=== PATIENT | female | born 2000 | race Caucasian/White ===

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

== ENCOUNTER → 2019-03-18 12:41 | Outpatient (CLI) | payer BC ==
[2018-10-03 10:12] VITALS: BMI 24.7
[~2019-03-18 12:41] MED LIST: FOLIC ACID1 MG PO; HYDROCODON-ACE1 EA10 PO; IBUPROFEN600 MG PO; MULTI-DAY VITAM1 TAB PO; PRENAVITE1 TAB PO
[2019-03-18 13:29] LABS: HEMATOCRIT 29.7 % (36.0-48.0); HEMOGLOBIN 9.3 g/dL (12-16); MCH 24.5 pg (26.0-34.0); MCHC 31.3 g/dL (31.0-37.0); MCV 78.4 fL (80.0-100.0); MEAN PLATELET VOLUME 9.8 fL (7.4-10.4); RBC 3.79 10x6/uL (4.00-5.40); RDW 15.3 % (11.5-14.5); WBC 8.1 10x3/uL (4.8-10.8)
[2019-03-18 14:16] LABS: CALC OSMOLALITY 273 mosm/kg (275-300); CALCIUM 8.3 mg/dL (8.5-10.1); CARBON DIOXIDE 23.3 mmol/L (21.0-32.0); CHLORIDE - SERUM 105 mmol/L (98-107); CREATININE - SERUM 0.8 mg/dL (0.6-1.3); POTASSIUM - SERUM 4.2 mmol/L (3.5-5.1); SODIUM 139 mmol/L (136-145); UREA NITROGEN 8 mg/dL (7-18); URIC ACID 3.9 mg/dL (2.6-7.2); eGFR NON AFRICAN AMERICAN > 90 mL/min (90-120)
[2019-03-18 14:33] LABS: GLUCOSE 64 mg/dL (74-106)
[2019-03-18 14:48] LABS: ALT (SGPT) 18 U/L (10-68)
[2019-04-26 15:07] VITALS: BMI 35.8
== END | disposition home or self-care (01) ==
LOC: D.LDO 12:41
PROVIDERS: ATTEND Obstetrics & Gynecology
DX: O26.893 Other specified pregnancy related conditions, third trimester (principal); Z3A.28 28 weeks gestation of pregnancy; R03.0 Elevated blood-pressure reading, without diagnosis of hypertension

== ENCOUNTER → 2019-04-03 09:14 | Outpatient (CLI) | payer BC ==
[2018-10-03 10:12] VITALS: BMI 24.7
[2019-04-03 10:29] LABS: BASOPHILS 0.1 % (0-2); EOSINOPHILS 1.9 % (0-7); HEMATOCRIT 26.6 % (36.0-48.0); HEMOGLOBIN 8.4 g/dL (12-16); IMMATURE GRANULOCYTES 0.4 % (0-5); LYMPHOCYTES 23.7 % (15-50); MCH 23.9 pg (26.0-34.0); MCHC 31.6 g/dL (31.0-37.0); MCV 75.6 fL (80.0-100.0); MEAN PLATELET VOLUME 9.7 fL (7.4-10.4); MONOCYTES 5.5 % (2-11); NEUTROPHILS 68.4 % (40-80); PLATELET COUNT 221 10x3/uL (130-400); RBC 3.52 10x6/uL (4.00-5.40); RDW 15.6 % (11.5-14.5); WBC 7.5 10x3/uL (4.8-10.8)
[2019-04-03 11:01] LABS: ALBUMIN 2.3 g/dL (3.4-5.0); ALKALINE PHOSPHATASE 154 U/L (46-116); ALT (SGPT) 8 U/L (10-68); BILIRUBIN - DIRECT 0.03 mg/dL (0.00-0.30); BILIRUBIN - INDIRECT 0.19 mg/dL (0.00-1.00); BILIRUBIN - TOTAL 0.22 mg/dL (0.2-1.3); CALC OSMOLALITY 273 mosm/kg (275-300); CHLORIDE - SERUM 106 mmol/L (98-107); CREATININE - SERUM 0.7 mg/dL (0.6-1.3); GLUCOSE 83 mg/dL (74-106); POTASSIUM - SERUM 4.1 mmol/L (3.5-5.1); PROTEIN - SERUM 5.9 g/dL (6.4-8.2); SODIUM 138 mmol/L (136-145); UREA NITROGEN 9 mg/dL (7-18); URIC ACID 4.5 mg/dL (2.6-7.2); eGFR NON AFRICAN AMERICAN > 90 mL/min (90-120)
[2019-04-26 15:07] VITALS: BMI 35.8
== END | disposition home or self-care (01) ==
LOC: D.LDO 09:14
PROVIDERS: ATTEND Obstetrics & Gynecology
DX: O26.893 Other specified pregnancy related conditions, third trimester (principal); Z3A.30 30 weeks gestation of pregnancy; R03.0 Elevated blood-pressure reading, without diagnosis of hypertension

== ENCOUNTER 2019-04-08 09:33 | Outpatient (CLI) | payer BC ==
[2018-10-03 10:12] VITALS: BMI 24.7
[~2019-04-08 09:33] MED LIST changes: -HYDROCODON-ACE1 EA10 PO; -IBUPROFEN600 MG PO
[2019-04-08 10:17] LABS: BASOPHILS 0.1 % (0-2); EOSINOPHILS 2.3 % (0-7); HEMATOCRIT 23.7 % (36.0-48.0); IMMATURE GRANULOCYTES 0.4 % (0-5); LYMPHOCYTES 23.1 % (15-50); MCH 23.4 pg (26.0-34.0); MCHC 31.2 g/dL (31.0-37.0); MEAN PLATELET VOLUME 9.9 fL (7.4-10.4); MONOCYTES 7.6 % (2-11); NEUTROPHILS 66.5 % (40-80); PLATELET COUNT 231 10x3/uL (130-400); RBC 3.16 10x6/uL (4.00-5.40); RDW 15.6 % (11.5-14.5); WBC 7.9 10x3/uL (4.8-10.8)
[2019-04-08 10:36] LABS: ALBUMIN 2.2 g/dL (3.4-5.0); ALKALINE PHOSPHATASE 152 U/L (46-116); ALT (SGPT) 8 U/L (10-68); BILIRUBIN - DIRECT 0.06 mg/dL (0.00-0.30); BILIRUBIN - TOTAL 0.26 mg/dL (0.2-1.3); CALC OSMOLALITY 275 mosm/kg (275-300); CALCIUM 7.7 mg/dL (8.5-10.1); CARBON DIOXIDE 23.6 mmol/L (21.0-32.0); CHLORIDE - SERUM 107 mmol/L (98-107); CREATININE - SERUM 0.8 mg/dL (0.6-1.3); GLUCOSE 76 mg/dL (74-106); POTASSIUM - SERUM 3.8 mmol/L (3.5-5.1); PROTEIN - SERUM 5.6 g/dL (6.4-8.2); SODIUM 140 mmol/L (136-145); UREA NITROGEN 6 mg/dL (7-18); URIC ACID 5.2 mg/dL (2.6-7.2); eGFR NON AFRICAN AMERICAN > 90 mL/min (90-120)
[2019-04-08 10:37] LABS: HEMOGLOBIN 7.4 g/dL (12-16)
[2019-04-11 08:56] LABS: PROTEIN - URINE 8.7 mg/dL (0.0-11.9)
[2019-04-26 15:07] VITALS: BMI 35.8
== END 2019-04-08 18:00 ==
LOC: D.LABREF 09:33 → D.LDO 09:33
PROVIDERS: ATTEND Obstetrics & Gynecology
DX: O26.893 Other specified pregnancy related conditions, third trimester (principal); Z3A.31 31 weeks gestation of pregnancy; R03.0 Elevated blood-pressure reading, without diagnosis of hypertension

== ENCOUNTER → 2019-04-11 08:51 | Outpatient (CLI) | payer BC ==
[2018-10-03 10:12] VITALS: BMI 24.7
== END | disposition home or self-care (01) ==
LOC: D.LDO 08:51
PROVIDERS: ATTEND Obstetrics & Gynecology
DX: O26.893 Other specified pregnancy related conditions, third trimester (principal)

== ENCOUNTER → 2019-04-15 09:26 | Outpatient (CLI) | payer BC ==
[2018-10-03 10:12] VITALS: BMI 24.7
[~2019-04-15 09:26] MED LIST changes: +HYDROCODON-ACE1 EA10 PO; +IBUPROFEN600 MG PO
[2019-04-26 15:07] VITALS: BMI 35.8
== END | disposition home or self-care (01) ==
LOC: D.LDO 09:26
PROVIDERS: ATTEND Obstetrics & Gynecology
DX: O26.893 Other specified pregnancy related conditions, third trimester (principal); Z3A.32 32 weeks gestation of pregnancy

== ENCOUNTER → 2019-04-18 11:13 | Outpatient (CLI) | payer BC ==
[2018-10-03 10:12] VITALS: BMI 24.7
[2019-04-18 12:41] LABS: BASOPHILS 0.3 % (0-2); EOSINOPHILS 1.8 % (0-7); HEMATOCRIT 31.6 % (36.0-48.0); HEMOGLOBIN 10.2 g/dL (12-16); IMMATURE GRANULOCYTES 0.3 % (0-5); LYMPHOCYTES 21.2 % (15-50); MCH 25.4 pg (26.0-34.0); MCHC 32.3 g/dL (31.0-37.0); MCV 78.6 fL (80.0-100.0); MEAN PLATELET VOLUME 10.6 fL (7.4-10.4); MONOCYTES 5.6 % (2-11); NEUTROPHILS 70.8 % (40-80); RBC 4.02 10x6/uL (4.00-5.40); RDW 19.5 % (11.5-14.5); WBC 7.7 10x3/uL (4.8-10.8)
[2019-04-18 12:43] LABS: PLATELET COUNT 178 10x3/uL (130-400)
[2019-04-18 13:12] LABS: ALBUMIN 2.2 g/dL (3.4-5.0); ALKALINE PHOSPHATASE 166 U/L (46-116); ALT (SGPT) 9 U/L (10-68); BILIRUBIN - DIRECT 0.07 mg/dL (0.00-0.30); BILIRUBIN - INDIRECT 0.13 mg/dL (0.00-1.00); CALC OSMOLALITY 276 mosm/kg (275-300); CARBON DIOXIDE 21.4 mmol/L (21.0-32.0); CHLORIDE - SERUM 107 mmol/L (98-107); CREATININE - SERUM 0.8 mg/dL (0.6-1.3); GLUCOSE 89 mg/dL (74-106); POTASSIUM - SERUM 3.7 mmol/L (3.5-5.1); PROTEIN - SERUM 5.7 g/dL (6.4-8.2); SODIUM 140 mmol/L (136-145); UREA NITROGEN 10 mg/dL (7-18); URIC ACID 5.6 mg/dL (2.6-7.2); eGFR NON AFRICAN AMERICAN > 90 mL/min (90-120)
[2019-04-23 15:21] LABS: PROTEIN - URINE 51.2 mg/dL (0.0-11.9)
[2019-04-26 15:07] VITALS: BMI 35.8
== END | disposition home or self-care (01) ==
LOC: D.LDO 10:59
PROVIDERS: ATTEND Obstetrics & Gynecology
DX: O10.919 Unspecified pre-existing hypertension complicating pregnancy, unspecified trimester (principal)

== ENCOUNTER 2019-04-23 17:58 | Outpatient (CLI) | payer BC ==
[2018-10-03 10:12] VITALS: BMI 24.7
[~2019-04-23 17:58] MED LIST changes: -HYDROCODON-ACE1 EA10 PO; -IBUPROFEN600 MG PO
[2019-04-23 18:48] LABS: BASOPHILS 0.2 % (0-2); EOSINOPHILS 2.2 % (0-7); HEMATOCRIT 30.7 % (36.0-48.0); HEMOGLOBIN 9.9 g/dL (12-16); IMMATURE GRANULOCYTES 0.2 % (0-5); LYMPHOCYTES 33.1 % (15-50); MCH 25.4 pg (26.0-34.0); MCHC 32.2 g/dL (31.0-37.0); MCV 78.9 fL (80.0-100.0); MEAN PLATELET VOLUME 10.7 fL (7.4-10.4); MONOCYTES 5.8 % (2-11); NEUTROPHILS 58.5 % (40-80); PLATELET COUNT 187 10x3/uL (130-400); RBC 3.89 10x6/uL (4.00-5.40); RDW 20.2 % (11.5-14.5); WBC 6.4 10x3/uL (4.8-10.8)
[2019-04-23 19:09] LABS: ALBUMIN 2.2 g/dL (3.4-5.0); ALKALINE PHOSPHATASE 169 U/L (46-116); ALT (SGPT) 8 U/L (10-68); BILIRUBIN - TOTAL 0.22 mg/dL (0.2-1.3); CALC OSMOLALITY 273 mosm/kg (275-300); CALCIUM 7.6 mg/dL (8.5-10.1); CARBON DIOXIDE 20.4 mmol/L (21.0-32.0); CHLORIDE - SERUM 106 mmol/L (98-107); CREATININE - SERUM 0.8 mg/dL (0.6-1.3); GLUCOSE 76 mg/dL (74-106); POTASSIUM - SERUM 3.7 mmol/L (3.5-5.1); PROTEIN - SERUM 5.4 g/dL (6.4-8.2); SODIUM 138 mmol/L (136-145); UREA NITROGEN 9 mg/dL (7-18); URIC ACID 6.3 mg/dL (2.6-7.2); eGFR NON AFRICAN AMERICAN > 90 mL/min (90-120)
[2019-04-23 19:11] LABS: BILIRUBIN - DIRECT 0.02 mg/dL (0.00-0.30)
[2019-04-24 17:05] LABS: APPEARANCE CLEAR (CLEAR); BILIRUBIN NEGATIVE (NEGATIVE); COLOR YELLOW (YELLOW); GLUCOSE NEGATIVE (NEGATIVE); KETONE NEGATIVE (NEGATIVE); NITRITE NEGATIVE (NEGATIVE); PROTEIN TRACE mg/dL (NEGATIVE); UROBILINOGEN NORMAL (NORMAL)
[2019-04-26 15:07] VITALS: BMI 35.8
== END 2019-04-24 18:15 | disposition home or self-care (01) ==
LOC: D.LDO 17:58 → D.LD 22:17 → D.LDO 04-24 18:15
PROVIDERS: ATTEND Obstetrics & Gynecology
DX: O26.90 Pregnancy related conditions, unspecified, unspecified trimester (principal)

== ENCOUNTER 2019-04-26 12:25 | Inpatient (IN) | payer BC ==
[~2019-04-26] VITALS: Ht 175.3 cm; Wt 109.8 kg
--- NOTE | 2019-04-26 09:00 | NUR ---
PHONE CALL MADE TO FIONA IN PHARMACY TO REQUEST MAG SULFATE 6 GRAM LOADING DOSE.
[2019-04-26 13:37] LABS: BASOPHILS 0.1 % (0-2); EOSINOPHILS 0.4 % (0-7); HEMATOCRIT 30.6 % (36.0-48.0); HEMOGLOBIN 9.5 g/dL (12-16); IMMATURE GRANULOCYTES 0.6 % (0-5); LYMPHOCYTES 22.4 % (15-50); MCH 25.6 pg (26.0-34.0); MCV 82.5 fL (80.0-100.0); MEAN PLATELET VOLUME 10.6 fL (7.4-10.4); MONOCYTES 9.9 % (2-11); NEUTROPHILS 66.6 % (40-80); PLATELET COUNT 196 10x3/uL (130-400); RBC 3.71 10x6/uL (4.00-5.40); RDW 20.8 % (11.5-14.5); WBC 8.6 10x3/uL (4.8-10.8)
[2019-04-26 13:43] LABS: ALBUMIN 2.2 g/dL (3.4-5.0); ALKALINE PHOSPHATASE 154 U/L (46-116); ALT (SGPT) 6 U/L (10-68); BILIRUBIN - DIRECT 0.06 mg/dL (0.00-0.30); BILIRUBIN - INDIRECT 0.13 mg/dL (0.00-1.00); BILIRUBIN - TOTAL 0.19 mg/dL (0.2-1.3); CALC OSMOLALITY 279 mosm/kg (275-300); CALCIUM 7.7 mg/dL (8.5-10.1); CARBON DIOXIDE 20.7 mmol/L (21.0-32.0); CHLORIDE - SERUM 110 mmol/L (98-107); CREATININE - SERUM 0.9 mg/dL (0.6-1.3); GLUCOSE 93 mg/dL (74-106); POTASSIUM - SERUM 3.7 mmol/L (3.5-5.1); SODIUM 141 mmol/L (136-145); UREA NITROGEN 9 mg/dL (7-18); URIC ACID 5.4 mg/dL (2.6-7.2); eGFR NON AFRICAN AMERICAN 85 mL/min (90-120)
[2019-04-26 15:07] VITALS: BP 169/91; Ht 175.3 cm; Wt 109.8 kg
--- NOTE | 2019-04-26 16:58 | NUR ---
BABY BOY AT [id number]
[2019-04-26 18:11] VITALS: BP 118/64
--- NOTE | 2019-04-26 18:15 | NUR ---
RECEIVED PT POST SECTION FROM RR. PT HAS LARGE WHITE DRESSING OVER LOW TRANSVERSE INCISION, FUNDUS FIRM, U/1, SMALL RUBRA LOCHIA, 2 DIME SIZED CLOTS REMOVED. PERICARE DONE, AND NEW PERIPAD APPLIED. ABDOMEN PALPATES SOFT. ICE PACK PLACED OVER GOWN TO INCISION. SCDS ON BY RR RN. RECEIVED PT WITH PITOCIN INFUSING AT 125 ML/HR. SEE EM[facility] FOR ALL MEDS ADM BY THIS RN. DR. MCCARTY TO DESK, VERBAL REPORT THAT HE WANTS PT TO HAVE A 6 GRAM LOADING DOSE OF MAGNESIUM SULFATE, AND THEN RUN AT 2 GRAMS AN HOUR. PT SERVED ICE WATER. FAMILY TO BEDSIDE. SRUP X2, CALL LIGHT AND PHONE WITHIN REACH.
[2019-04-26 18:30] VITALS: BP 124/76
--- NOTE | 2019-04-26 18:30 | NUR ---
FUNDUS FIRM, U/1, SMALL RUBRA LOCHIA, NO CLOTS NOTED. ABDOMEN CONTINUES TO PALPATE SOFT. PHONE CALL MADE TO PHARMACY, MAGNESIUM SULFATE 6 GRAM LOADING DOSE IS NOT FOUND IN [facility].
[2019-04-26 18:45] VITALS: BP 131/81
--- NOTE | 2019-04-26 19:00 | NUR ---
REPORT GIVEN TO Sylvia YOUNG RN.
--- NOTE | 2019-04-26 19:00 | NUR ---
DR. MCCARTY CALLS TO UNIT, REPORT GIVEN TO MD OF POST OP BP'S BY Saad KEYS RN.
--- NOTE | 2019-04-26 19:30 | NUR ---
REC'D PT AA&O X 4. PAIN ASSESSED. PT RATES PAIBN 2/10. PT HAS RECEIVED TORADOL 30MG SIVP AND DILUADID COACH OPERATOR IS IN PLACED AND PT HAS PUSHED THE BOLUS BUTTON. BEDSIDE REPORT REC'D FROM Meme VOGEL RN. FUNDUS CHECK DONE PER Meme VOGEL RN FUNDUS FIRM,U/U,NO CLOTS EXPRESSED W/MASSAGE, BUT MULTIPLE GOLF BALL SIZED CLOTS ALREADY NOTED TO HAVE BEEN EXPLELLED. PERICARE DONE. COMPLETE BED LINEN CHANGED DONE. FRESH PERIPAD PLACED. SCANT LOCHIA NOTED AT THIS TIME. SHIFT ASSESSMENT COMPLETED. SEE FLOWSHEET. PT HAS TO IV SITES. 1 TO RIGHT HAND AND CURRENTLY 1 SALINE LOCK TO LEFT WRIST. LOADING DOSE OF MAGNESIUM SULFATE COMPLETE AT THIS TIME. MAINTANCE DOSE UP AT THIS TIME TO INFUSE AT 2GM/HR. 0.45% NS UP TO INFUSE AT 10ML/HR. PT CURRENTLY HAS NS W/20UNITS PITOCIN INFUSING AT 50ML/HR.CLEAR LIQUID TRAY SERVED AT THIS TIME. MULTIPLE FAMILY MEMBERS AT BEDSIDE.SEE FLOW SHEET FOR COMPLETE CHARTING. PT DENIES NEEDS AT PRESENT. BED LOW, SIDE RAILS UP X 2. CALL LIGHT AT PT'S SIDE.
--- NOTE | 2019-04-26 20:18 | NUR ---
THIS RN TO BEDSIDE. PT AA&O X 4. FUNDUS FIRM, U/U, SCANT LOCHIA NOTED. NO BLOOD CLOTS EXPRESSED. PT COMPLETING CLEAR LIQUID DIET TRAY.
--- NOTE | 2019-04-26 21:00 | NUR ---
THIS RN TO BEDSIDE. PT SITTING UP IN BED. WORKING ON NURSERY PAPERWORK. PAIN ASSESSED. PT REPORTS PAIN 2/10. NO FURTHER PAIN INTEVENTIONS REQUESTED AT THIS TIME. FUNDUS FIRM,U/U, SCANT TO LIGHT LOCHIA NOTED. NO BLOOD CLOTS EXPRESSED W/MASSAGE. APPROX 125ML URINE NOTED AND DUMPED. PT DENIES NEEDS AT THIS TIME. CURRENT PERIPAD CHANGED.
[2019-04-26 21:26] LABS: BASOPHILS 0.1 % (0-2); EOSINOPHILS 0.2 % (0-7); HEMOGLOBIN 9.5 g/dL (12-16); IMMATURE GRANULOCYTES 0.5 % (0-5); LYMPHOCYTES 15.6 % (15-50); MCHC 31.7 g/dL (31.0-37.0); MCV 82.2 fL (80.0-100.0); MEAN PLATELET VOLUME 10.3 fL (7.4-10.4); MONOCYTES 8.5 % (2-11); NEUTROPHILS 75.1 % (40-80); PLATELET COUNT 184 10x3/uL (130-400); RBC 3.65 10x6/uL (4.00-5.40); RDW 20.2 % (11.5-14.5)
[2019-04-26 21:37] LABS: WBC 12.1 10x3/uL (4.8-10.8)
--- NOTE | 2019-04-26 22:15 | NUR ---
THIS RN TO BEDSIDE. PT INSTRUCTED ON HOW TO USE THE INCENTIVE SPIROMETER AND T/C/D. PT HAS REPOSITIONED SELF UP IN BED FREQUENTLY. PT PERFORMS I.S. X 3 W/GOOD EFFORT. ABLE TO PULL 1800. COUGHS 3 TIMES W/GOOD EFFORT. APPROX 225ML URINE EMPTIED FROM UROMETER AND DUMPED TO OROZCO BAG. CURRENTLY RATES PAIN 2/10. REPORTS HAS BEEN USING OBSTETRICS TEACHER BUTTON TO MAINTAIN PAIN CONTROL. FUNDUS FIRM,U/U, SMALL LOCHIA NOTED. CLEAN PAD PLACED.
--- NOTE | 2019-04-26 23:23 | NUR ---
[facility] TEAM TO PT'S ROOM AT THIS TIME FOR PT TO SEE BEFORE TRANSFERED TO [facility].
[2019-04-26 23:30] VITALS: BP 146/93
--- NOTE | 2019-04-26 23:35 | NUR ---
THIS RN TO BEDSIDE FOR T/C/D, PT PERFORMS I/S X 3 TIMES W/GOOD EFFORT. COUGHS W/GOOD EFFORT. REPOSITIONS SELF FROM SIDE TO SIDE TO RETURN TO LOW GENAO'S. FUNDUS FIRM,U/U, SCANT TO SMALL LOCHIA NOTED. NO CLOTS EXPRESSED W/MASSAGE. CLEAN PERIPAD PLACED. SCD WRAPS REMAIN IN PLACE BILATERALLY. PUMP REMAINS ON AND FUNCTIONING. EDEMA TO LE'S NOTED W/MILD PITTING NOTED. CLONUS ACCESSED AND PRESENT TO RT LE. REFLEXES 2+. APPROX 225ML URINE NOTED IN UROMETER AND DUMPED TO FOLLOW BAG. PT IS CONTINUOUSLY DRINKING WATER SERVED. FRES ICE CAP TO ABD. VITAL SIGNS OBTAINED SEE PAPER FLOWSHEET. PT REPORTS SHE IS GOING TO REST NOW. THIS RN REMAINS AT BEDSIDE PATIENT DRIFTS OFF TO SLEEP. NOTED THAT PT DROPS O2 SATS WHEN SLEEPING. PT IS A MOUTH BREATHER. O2 VIA NC PLACED ON PT AT 2/5L WHILE PT SLEEPS TO MAINTAIN O2 SAT OF 95%. PT CURRENTLY RATES HER PAIN 1-2/10. REPORTING SHE IS CONSISTANCTLY PUSHING HER ARMORED TRUCK DRIVER BUTTON. NO FURTHER PAIN INTERVENTIONS REQUESTED AT THIS TIME. IV PUMPS CLEARED AT THIS TIME.
[2019-04-26 23:46] LABS: HEMATOCRIT 30.8 % (36.0-48.0); HEMOGLOBIN 9.8 g/dL (12-16); MCH 26.3 pg (26.0-34.0); MCHC 31.8 g/dL (31.0-37.0); MCV 82.8 fL (80.0-100.0); MEAN PLATELET VOLUME 10.1 fL (7.4-10.4); RBC 3.72 10x6/uL (4.00-5.40); RDW 20.4 % (11.5-14.5); WBC 12.5 10x3/uL (4.8-10.8)
--- NOTE | 2019-04-26 23:56 | NUR ---
ROBERTO FROM THE LAB CALLS W/MAG LEVEL OF 4.6. PT IS NOT WITHIN THERAPEUTIC LEVEL. MD WILL NOT BE NOTIFIED.
[2019-04-27] VITALS (8 sets, daily range): BP systolic 133–143; BP diastolic 70–88
--- NOTE | 2019-04-27 00:55 | NUR ---
rounds made. pt sleeping in high stout's. snorning audible. resp even. lung sounds clear/=. o2 via nc remains on pt at 2.5L. i&o collected. approx 130ml in and 175ml out. pumps cleared at this time. pt left undisturbed at this time to allow for rest.
--- NOTE | 2019-04-27 02:30 | NUR ---
ROUNDS MADE FOR I&O COLLECTION. PT SLEEPING. SNORING AUDIBLE. RESP EVEN AND UNLABORED. PT LEFT UNDISTURBED AT THIS TIME TO ALLOW FOR REST.
--- NOTE | 2019-04-27 03:30 | NUR ---
ROUNDS MADE FOR I&O. PT AA&O X 4 TALKING W/GUEST AT BEDSIDE. PAIN AND NEEDS ASSESSED. PT DENIES NEEDS AT PRESENT. WHILE AT BEDSIDE, PT ENCOURAGED TO PERFORM I.S. PT DOES SO X 3 W/GOOD EFFORT. COUGHS W/MODERATE EFFORT. PT REPORTS PAIN 2/10.
--- NOTE | 2019-04-27 04:35 | NUR ---
ROUNDS MADE FOR I&O COLLECTION. PT IN HIGH GENAO'S SLEEPING. RESP EVEN. SNORING AUDIBLE. PT LEFT UNDISTURBED AT THIST TALIB TO ALLOW FOR REST.
--- NOTE | 2019-04-27 05:30 | NUR ---
THIS RN TO BEDSIDE FOR T/C/D. PT AA&O X 4. PAIN ASSESSED. PT REPORTS ABD PAIN 2/10. NO ADDITIONAL PAIN INTEVENTIONS REQUESTED. PT PERFORMS I.S. X3 WITH GOOD EFFORT. COUGHS W/GOOD EFFORT. TURNS FROM SIDE TO SIDE W/OUT ASSISTANCE. RETURNS TO HIGH GENAO'S FOR COMFORT. FUNDUS FIRM,U/1, SMALL RUBRA LOCHIA NOTED. PER CARE DONE. CLEAN PERIPAD PLACED. I&O COLLECTED. OROZCO BAG W/APPROX 1500ML EMPTIED.VITAL SIGNS OBTAINED. SEE FLOWSHEET/PAPER FLOWSHEET. REFLEXES 2+, LUNG SOUNDS CL/=. FRESH ICE CAP PLACED OVER INCISION SITE. BED LOW, SIDE RAILS UP X2. CALL LIGHT AND REGULATORY COMPLIANCE DIRECTOR BUTTON AT PT'S SIDE.
--- NOTE | 2019-04-27 06:30 | NUR ---
ROUNDS MADE. PT AA&O X 4 SITTING UP IN BED VISITING W/GUEST AT BEDSIDE. PAIN AND NEEDS ASSESSED. PT DENIES NEEDS AT PRESENT. REPORTS PAIN 09/09. PITOCIN INFUSION COMPLETE AT THIS TIME.
--- NOTE | 2019-04-27 06:35 | NUR ---
LAB TO ROOM AT THIS TIME FOR AM DRAW. PT AA&O X 4. PAIN AND NEEDS ASSESSED. PT REPORTS ABD PAIN 2/. FRESH ICE CAP PROVIDED PER PT REQUEST. NO FURTHER NEEDS VOICED AT THIS TIME.
[2019-04-27 06:43] LABS: BASOPHILS 0.2 % (0-2); EOSINOPHILS 0.8 % (0-7); HEMATOCRIT 30.2 % (36.0-48.0); HEMOGLOBIN 9.5 g/dL (12-16); IMMATURE GRANULOCYTES 0.7 % (0-5); LYMPHOCYTES 18.8 % (15-50); MCHC 31.5 g/dL (31.0-37.0); MCV 82.5 fL (80.0-100.0); MEAN PLATELET VOLUME 10.2 fL (7.4-10.4); NEUTROPHILS 71.5 % (40-80); PLATELET COUNT 178 10x3/uL (130-400); RBC 3.66 10x6/uL (4.00-5.40); RDW 20.6 % (11.5-14.5)
[2019-04-27 06:47] LABS: WBC 8.6 10x3/uL (4.8-10.8)
--- NOTE | 2019-04-27 07:30 | NUR ---
ASSUMED CARE OF THIS PATIENT. SITTING UP EATING CLEAR LIQUID DIET. SHIFT ASSESSMENT AND MAG ASSESSMENT (SEE WRITTEN FLOW SHEET) COMPLETED. DENIES PAIN OR NEEDING ANYTHING AT THIS TIME. INFANT WAS TRANSFERRED YESTERDAY TO [facility]. SAYS HER MOTHER HAS BEEN SENDING HER PICTURES. DENIES PAIN. USING FISH CUTTER PRN. SAYS SHE FEELS TIRED. VISITOR SLEEPING ON COUCH. SIDE RAILS UP X 2, CALL LIGHT AND FISH CUTTER CONTROLLER IN REACH. REMINDED TO USE FISH CUTTER IF NEEDED ONLY FOR PAIN. VERBALIZED UNDERSTANDING. A+ RUBELLA IMMUNE, 13 HOURS S/P C/S PREECLAMPSIA
[2019-04-27 08:10] LABS: RAPID PLASMA REAGIN Non Reactive (Non Reactive)
--- NOTE | 2019-04-27 09:43 | NUR ---
ALERT AND ORIENTED, AWAKE SITTING UP IN BED TEXTING ON CELL PHONE. MAG ASSESSMENT COMPLETED. PT DESIRES TO STAY IN SITTING POSITION. INCENTIVE SPIROMETER USED X 3 REMINDED OF USE. SIDERAILS UP X 2, CALL LIGHT IN REACH, IV'S PATENT, OROZCO DRAINING, SCD'S WORKING X 2. NON PRODUCTIVE COUGH X 3 AFTER USE OF INCENTIVE SPRIOMETER. 3/10 INCISIONAL PRESSURE. PERFORMANCE ARCHITECT CONTROLLER IN REACH.
--- NOTE | 2019-04-27 10:09 | NUR ---
DR MCCARTY VISITED PATIENT. NEW ORDERS RECEIVED.
--- NOTE | 2019-04-27 10:30 | NUR ---
IV SOLUTIONS AND OROZCO CATHETER DC'D. SALINE LOCK WAS FLUSHED. DISCUSSED PLAN OF CARE REGARDING PAIN MANAGEMENT, VOIDING, SHOWER, AMBULATION, REGULAR DIET TODAY. VERBALIZED UNDERSTANDING. VISITORS IN ROOM, SIDE RAILS UP X 2, CALL LIGHT IN REACH. SCDS ON, O2 AT 2 LITERS PER NC. PT SAYS HER MOTHER AND FATHER BOTH HAVE SLEEP APNEA. ENCOURAGED PT TO F/U WITH PCM AFTER DC FOR POSSIBLE EVALUATION.
--- NOTE | 2019-04-27 11:27 | NUR ---
NORCO 10 MG GIVEN PO FOR RELIEF OF ABDOMINAL CRAMPING. ASSISTED UP TO BATHROOM TO VOID. VOIDED 60 ML CLEAR URINE. DESIRED TO TAKE SHOWER.
--- NOTE | 2019-04-27 11:50 | NUR ---
CURRENTLY IN SHOWER, INSTRUCTED ON INCISIONAL CARE. TOLERATING WELL. COMPLETE LINEN CHANGE DONE.
--- NOTE | 2019-04-27 12:37 | NUR ---
AMBULATED IN [place] TO NURSERY AND BACK TO ROOM. TOLERATED WELL. ORAL CARE PER SELF. VISITOR X 1 IN ROOM.
[2019-04-27 12:38] LABS: HEMATOCRIT 32.2 % (36.0-48.0); HEMOGLOBIN 10.2 g/dL (12-16); MCH 26.2 pg (26.0-34.0); MCHC 31.7 g/dL (31.0-37.0); MCV 82.8 fL (80.0-100.0); MEAN PLATELET VOLUME 10.2 fL (7.4-10.4); RBC 3.89 10x6/uL (4.00-5.40); RDW 20.4 % (11.5-14.5); WBC 8.6 10x3/uL (4.8-10.8)
--- NOTE | 2019-04-27 12:55 | NUR ---
SITTING UP IN BED EATING LUNCH. VISITOR IN ROOM. SAYS HER PAIN IS BETTER, NOW 2/1- ACHING IN INCISION AREA. NO REQUESTS. CALL LIGHT IN REACH, SIDE RAILS UP X 2. INSTRUCTED TO CALL FOR ASSISTANCE NEXT TIME SHE NEEDS TO GET UP TO ASSESS STABILITY. VERBALIZED UNDERSTANDING.
--- NOTE | 2019-04-27 13:48 | NUR ---
WOKE UP FROM SLEEP REQUESTING ICE PACK. FRESH ICE PACK GIVEN. MOTRIN 600 MG GIVEN PO FOR 2/10 ABD CRAMPING. SCD'S REPLACED SINCE IN BED TAKING A NAP. USING 02 VIA NC WHILE SLEEPING. SAYS SHE FEELS A LOT BETTER. VISITOR X 1 IN ROOM. SIDE RAILS UP X 2, CALL LIGHT IN REACH. FRESH WATER AT BEDSIDE.
--- NOTE | 2019-04-27 15:16 | NUR ---
ASSISTED UP TO BATHROOM. VOIDED 700 ML CLEAR URINE WITH SCANT BLOOD NOTED AT BOTTOM OF [place] HAT. NO LOCHIA ON MERCY-PADS. RETURNED TO BED. ASKED ABOUT PUMPING BREASTMILK. Castro EHRRERA RN IN NURSERY NOTIFIED AND WILL BRING BREASTPUMP TO ROOM. SIDERAILS UP X 2, CALL LIGHT IN REACH, SCD'S REPLACED.
--- NOTE | 2019-04-27 15:30 | NUR ---
NORCO 10 MG GIVEN PO FOR RELIEF OF 4/10 ABD CRAMPING. Castro HERRERA RN AT BEDSIDE INSTRUCTING ON BREASTPUMP.
--- NOTE | 2019-04-27 17:09 | NUR ---
UP TO BATHROOM TO VOID STATES "I'M HURTING". VOIDED 900 ML URINE. 3/10 ON PAIN SCALE AFTER VOIDING, SAYS SHE FEELS MUCH BETTER. REMINDED NOT TO HOLD URINE. ENCOURAGED TO GET OOB ABOUT EVERY HOUR TO 1 1/2 HOURS TO EMPTY BLADDER. DISCUSSED DIURESIS ESPECIALLY AFTER MG AND PREECLAMPSIA. AMBULATING WITHOUT ASSISTANCE. NO C/O DIZZINESS, NO UNSTEADINESS NOTED. VISITORS X 2 IN ROOM.
--- NOTE | 2019-04-27 18:16 | NUR ---
3/10 ABD AND BACK PAIN. ALSO STATES "I THINK I HAVE GAS". CURRENTLY AMBULATING IN [place]. DISCUSSED RELIEF MEASURES TO RELIEVE GAS. ENCOURAGED FREQUENT AMBULATION. HAS BESSY SIZE ECCHYMOSIS NOTED AT SITE OF SPINAL ANESTHESIA. VISITORS X 2 IN ROOM.
--- NOTE | 2019-04-27 19:10 | NUR ---
PUMPING BREAST AT PRESENT. VISITORS X2 IN ROOM. WILL PERFORM ASSESSMENT AFTER PUMPING COMPLETED.
--- NOTE | 2019-04-27 19:42 | NUR ---
LYING ON BACK WITH HOB AT 45 DEGREES. VISITORS AT BEDSIDE. SALINE LOCKS NOTED BOTH IN RT AND LT WRIST AREA. RATES PAIN A 3 OF 10 AND STATES UNSURE IF INCISIONAL OR GAS RELATES. RELATES THAT SHE HAS PASSED SOME GAS TODAY AND LAST NIGHT. ABD. INCISION CLEAN AND DRY. ENCOURAGED PT. TO WEAR MERCY PAD OVER INCISION TO HELP WICK MOISTURE FROM THE AREA AND ALSO THE KEEP HER CLOTHES FROM BEING PAINFUL ON THE INCISION AREA. SALINE LOCK IN RT WRIST DISCONTINUED WITH INTACT CATH. TIP NOTED. BREATH SOUNDS CLEAR AND BOWEL SOUNDS AUDIBLE. NO PITTING EDEMA NOTED IN LOWER EXTREMITIES. INFORMED PT. THAT WITH HER BEING UP AND ABOUT OFTEN TO WALK OR GO TO BATHROOM, SCDS COULD BE LEFT OFF BUT TO CALL THIS NURSE BEFORE SHE GOES TO BED FOR THE NIGHT SO THEY CAN BE REAPPLIED. PT. STATES UNDERSTANDING AND AGREEMENT TO POC. STATES SHE PLANS TO TRAVEL TO [place] TOMORROW TO VISIT WITH INFANT. CAUTIONED PT. NOT TO OVERDO THE FIRST DAY OUT OF HOSPITAL. TO GET FREQUENT REST PERIODS AND STAY WELL HYDRATED.
--- NOTE | 2019-04-27 20:07 | NUR ---
PT. AMBULATORY TO BATHROOM. GAIT STEADY. STATES SHE UNSURE IF PAIN IS INCISIONAL OR GAS PAIN. ENCOURAGED PT. TO WALK SOME TO HELP IF GAS. PT. STATES UNDERSTANDING.
--- NOTE | 2019-04-27 20:10 | NUR ---
ENCOURAGED PT. TO REMAIN AT BEDREST FOR NEXT 45 MINUTES UNTIL PAIN MED HAD TIME TO WORK AND THEN THIS NURSE WOULD REPEAT BP CHECK. AFTER THAT TIME SHE COULD WALK IN HALLWAY AND HOPEFULLY BE MORE COMFORTABLE FOR HER WALK. PT. AGREEABLE AND STATES UNDERSTANDING. PT. GETTING OUT OF BED WITHOUT ASSISTANCE. MILK PUMPED FROM BREAST TAKEN TO NBN FOR NURSE TO LABEL AND REFRIGERATE FOR PT'S LATER USE FOR INFANT. ENCOURAGED PT. TO PUMP EVERY 3 HOURS TO ESTABLISH HER MILK SUPPLY.
--- NOTE | 2019-04-27 20:55 | NUR ---
PT. RATES PAIN A 3 OF 10. STATES AT THIS TIME SHE IS HAVING BACKPAIN AT EPIDURAL SITE ON BACK. DROWSY AT PRESENT.
--- NOTE | 2019-04-27 20:57 | NUR ---
500CC URINE IN [facility].
--- NOTE | 2019-04-27 21:04 | NUR ---
PT. STATES SHE DESIRES TO SLEEP. SCDS APPLIED TO LOWER LEGS AND PUMP APPLIED. PT. ASKED FOR NASAL CANNULA AND REQUESTED O2 AT 2 LITERS AND STATES IS BECAUSE SHE SNORES. COMPLIED WITH PT. REQUEST. LIGHTS DIMMED PER PT. REQUEST. [facility].
--- NOTE | 2019-04-27 21:05 | NUR ---
DR. MCCARTY PAGED AND RETURN CALL RECEIVED. INFORMED MD OF BP AT SHIFT START WITH PT. REPORT THAT SHE WAS IN PAIN. INFORMED MD THAT PT. WAS MEDICATED AND PAIN SUBSIDED AND BP AT THAT TIME. MD ALSO INFORMED THAT PT. REQUESTING O2 AT 2 LITERS BY CANNULA IN ORDER TO SLEEP. STATES THAT WOULD BE FINE.
--- NOTE | 2019-04-27 22:48 | NUR ---
UP TO BATHROOM TO VOID. GAIT STEADY. BACK TO BED AND SCDS RECONNECTED AND PUMP FUNCTIONAL. VITGAL SIGNS OBTAINED. FRIEND ON SOFA SLEEPING.
--- NOTE | 2019-04-27 23:36 | NUR ---
ASSISTED PT. WITH PREPARING BREASTPUMP FOR PUMPING. PT. ACCOMPLISHED AND BREAST MILK TAKEN TO NBN TO BE SECURED FOR FUTURE FEEDING. PT. DENIES ANY COMPLAINTS AT THIS TIME.
--- NOTE | 2019-04-28 01:45 | NUR ---
LOOKING ON PHONE AT . UP TO BATHROOM TO VOID.
--- NOTE | 2019-04-28 02:00 | NUR ---
BACK TO BED. SCDS RECONNECTED TO PUMP AND FUNCTIONAL. PT. STATES SHE IS READY TO SLEEP.
--- NOTE | 2019-04-28 05:14 | NUR ---
SCDS REMOVED AND PT. UP TO BATHROOM.
--- NOTE | 2019-04-28 05:21 | NUR ---
BACK TO BED FROM BATHROOM. VITAL SIGNS OBTAINED.
[2019-04-28 05:25] VITALS: BP 137/68
--- NOTE | 2019-04-28 07:23 | NUR ---
ASSUMED CARE OF THIS PT. CURRENTLY SLEEPING. RESPIRATIONS EVEN. WILL COMPLETE SHIFT ASSESSMENT WHEN AWAKE OR AFTER BREAKFAST. ANTICIPATE DC HOME TODAY.
[2019-04-28 08:31] VITALS: BP 157/88
--- NOTE | 2019-04-28 09:45 | NUR ---
GETTING READY TO TAKE A SHOWER. PLANS DC AFTER SHOWER. RH POSITIVE, RUBELLA IMMUNE, TDAP DUE IN 2021 PER [place] IMMUN[facility]ATION RECORD. WOULD LIKE REFERRAL TO [facility] C[facility]ATION [facility]. DECLINED NICODERM PATCH HERE OR SMOKING CESSATION MEDS TO GO HOME WITH. STATES "I HAVEN'T EVEN THOUGHT ABOUT SMOKING". VISITORS IN ROOM. WILL PROVIDE DC VERBAL AND WRITTEN INSTRUCTIONS TO ALSO INCLUDE BP ASSESSMENT FOR F/U WITH .
--- NOTE | 2019-04-28 10:41 | NUR ---
UP IN SHOWER. SMOKING CESSATION REFERRAL FAXED TO THE [place] [facility].
[2019-04-28] MEDS ORDERED: HYDROCODON-ACE1 EA10 PO (11:13)
[2019-04-28] MEDS ORDERED: IBUPROFEN600 MG PO (11:14)
--- NOTE | 2019-04-28 11:41 | NUR ---
SALINE LOCK DC'D WITH TIP INTACT. DC TEACHING COMPLETED TO INCLUDE POST OP CARE, S&S INFECTION, DANGER SIGNS, PP DEPRESSION, S&S PREECLAMPSIA, BP CHECKS/RECORDING, MEDICATION ADMINISTRATION AND FOLLOW-UP. VERBAL AND WRITTEN INFORMATION GIVEN. PRESCRIPTIONS GIVEN TO PATIENT. NO SPECIFIC QUESTIONS ASKED. VERBALIZED UNDERSTANDING. DC'D AT THIS TIME VIA WHEELCHAIR TO CAR WITH VISITOR DRIVING. ALL BELONGINGS REMOVED FROM ROOM.
== END 2019-04-28 11:41 | disposition home or self-care (01) | DRG 788 ==
LOC: D.LDO 12:25 → D.LD 13:43
PROVIDERS: ADMIT Obstetrics & Gynecology; ATTEND Obstetrics & Gynecology
PROC: 10D00Z1 Extraction of Products of Conception, Low, Open Approach (ICD-10-PCS; principal; 2019-04-26 14:30)
DX: O14.14 Severe pre-eclampsia complicating childbirth (principal); Z3A.34 34 weeks gestation of pregnancy; Z37.0 Single live birth; O60.14X0 Preterm labor third trimester with preterm delivery third trimester, not applicable or unspecified

== ENCOUNTER 2019-08-01 11:46 | Emergency (ER) | payer BC ==
[~2019-08-01] VITALS: Ht 175.3 cm; Wt 95.2 kg
[~2019-08-01 11:46] MED LIST changes: +HYDROCODON-ACE1 EA10 PO; +IBUPROFEN600 MG PO
[2019-08-01 12:02] VITALS: BP 131/71; Ht 175.3 cm; Wt 95.2 kg
[2019-08-01] MEDS ORDERED: PROZAC40 MG PO (12:04)
[2019-08-01] MEDS ORDERED: XANAX0.5 MG PO (12:04)
[2019-08-01] MEDS ORDERED: FLAGYL500 MG PO (12:24)
[2019-08-01] MEDS ORDERED: DOXYCYCLINE HY100 M2 PO (12:24)
[2019-08-01] MEDS ORDERED: ULTRAM50 MG PO (12:24)
[2019-08-01 12:43] LABS: HCG URINE NEGATIVE (NEGATIVE)
[2019-08-01 12:49] LABS: APPEARANCE HAZY (CLEAR); BILIRUBIN NEGATIVE (NEGATIVE); COLOR YELLOW (YELLOW); GLUCOSE NEGATIVE (NEGATIVE); KETONE NEGATIVE (NEGATIVE); NITRITE NEGATIVE (NEGATIVE); PROTEIN TRACE mg/dL (NEGATIVE); SPECIFIC GRAVITY 1.015 (1.005-1.020)
[2019-08-01 12:50] LABS: BACTERIA FEW /hpf (NEGATIVE); EPITHELIAL CELLS 0-5 /hpf (0-5); MUCUS <1+ /lpf (NONE SEEN); RED CELLS - URINE 0-5 /hpf (0-5)
== END 2019-08-01 13:24 | disposition home or self-care (01) ==
LOC: D.ER 11:46
PROVIDERS: Emergency Medicine
DX: R10.30 Lower abdominal pain, unspecified (principal); J45.909 Unspecified asthma, uncomplicated; Z72.0 Tobacco use; R11.0 Nausea